=== PATIENT | male | born 1985 | race Two or more races ===

== ENCOUNTER 2020-07-10 11:19 | Emergency (ER) | payer OTHER ==
[~2020-07-10] VITALS: Ht 167.6 cm; Wt 73.5 kg
--- NOTE | 2020-07-10 12:22 | NUR ---
CONTACT WITH PT, 35 YR OLD MALE HERE WITH C/O "I HAVE A LOT OF PAIN IN MY BODY, A LOT OF ACHES, PAIN IN MY BONES, COUGHING A LOT. SOMETIMES I THINK I HAVE FEVER. I HAVE BEEN TAKING IBUPROFEN AND IT CALMS IT DOWN SOME" HAS BEEN TAKING IBUPROFEN FOR 6 DAYS. PT IN NO ACUTE DISTRESS AT THIS TIME. PLACED ON AUTO BP AND PULSE OX MONITORS.
[2020-07-10] MEDS ORDERED: IBUP-1222 PO (12:28)
[2020-07-10] MEDS ORDERED: DEXAMETHASONE 4 MG TABLET PO ONE (13:00)
[2020-07-10] MEDS ORDERED: DEXAMETHASONE 4 MG TABLET ONE (13:09)
[2020-07-10 13:12] VITALS: BP 123/84
--- NOTE | 2020-07-10 13:12 | NUR ---
BREAK RN: VIVIAN IN ROOM FOR UPDATE. MEDS PER OCT. VSS. CALL LEYLA. TBDC.
[2020-07-10 13:26] LABS: ALBUMIN 3.4 g/dL (3.4-5.0); ANION GAP 6 mmol/L (5-15); CHLORIDE 104 mmol/L (98-107); CREATININE 1.25 mg/dL (0.7-1.3)
[2020-07-10 13:33] LABS: BASOPHILS % (AUTO) 0 % (0-1); EOSINOPHILS % (AUTO) 0 % (1-7); LYMPHOCYTES % (AUTO) 13 % (22-44); MEAN CORPUSCULAR HEMOGLOBIN 30.1 pg (27.5-34.5); MEAN CORPUSCULAR HGB CONC 34.2 g/dL (33.2-36.2); MEAN PLATELET VOLUME 8.9 fL (7.4-10.4); MONOCYTES % (AUTO) 9 % (2-9); NEUTROPHILS % (AUTO) 77 % (42-75); PLATELET COUNT 183 x10^3/uL (130-400); RED BLOOD COUNT 5.04 x10^6/uL (4.38-5.82); RED CELL DISTRIBUTION WIDTH 13.6 % (9.4-14.8)
[2020-07-10 13:37] LABS: MD NO
== END 2020-07-10 14:01 | disposition home or self-care (01) ==
LOC: ED 12:17
DX: U07.1 COVID-19 (principal); J15.9 Unspecified bacterial pneumonia; R05 Cough; R50.9 Fever, unspecified; R09.81 Nasal congestion; M79.10 Myalgia, unspecified site; Z87.891 Personal history of nicotine dependence
CPT/HCPCS: 71045; 80048; 82040; 85025; 87635; 99284